=== PATIENT | male | born 1970 | race Caucasian/White ===

== ENCOUNTER → 2017-08-18 | Outpatient (CLI) | payer OTHER ==
[~2017-08-18] MED LIST: ALLEGRA30 MG PO; AMBIEN 10MG10 MG PO; CEPHALEXIN500 M1 PO; CYMBALTA 60MG60 MG PO; LEXAPRO 5MG5 MG PO; LYRICA 25MG CAP25 MG; MELATONIN1 M1 PO; NORCO 325 MG-7.1 TAB PO; OXYCONTIN30 MG PO
== END ==
LOC: COL.VAS 15:39
DX: I82.4Z1 Acute embolism and thrombosis of unspecified deep veins of right distal lower extremity (principal)

== ENCOUNTER → 2017-10-29 | Outpatient (CLI) | payer OTHER | LOC: COL.VAS 09:08 | DX: I51.7 Cardiomegaly (principal); I34.0 Nonrheumatic mitral (valve) insufficiency; I27.0 Primary pulmonary hypertension; Z86.711 Personal history of pulmonary embolism | CPT/HCPCS: Q9967 ==

== ENCOUNTER → 2021-12-21 | Outpatient (CLI) | payer OTHER | LOC: COL.RAD 12:03 | DX: M47.812 Spondylosis without myelopathy or radiculopathy, cervical region (principal); M48.02 Spinal stenosis, cervical region ==

== ENCOUNTER → 2022-11-19 | Outpatient (CLI) | payer OTHER | LOC: COL.VAS 11:36 | DX: R06.02 Shortness of breath (principal) ==

== ENCOUNTER 2024-04-13 07:58 | Day surgery (SDC) | payer OTHER ==
[2024-04-13] VITALS (7 sets, daily range): BP systolic 92–123; BP diastolic 58–82; PULSE 72–109; TEMP 98.2
[~2024-04-13] VITALS: Ht 188.1 cm; Wt 131.0 kg
[~2024-04-13 07:58] MED LIST changes: +LR 1,000 ML IV SCH
[2024-04-13 08:37] LABS: HEMATOCRIT 45.4 % (42.0-52.0); HEMOGLOBIN 15.8 g/dl (13.5-18.0); MEAN CELL VOLUME 89 fl (80.0-100.0); MEAN CORPUSCULAR HEMOGLOBIN 31 pg (27-31); MEAN CORPUSCULAR HGB CONC 35 g/dl (33.0-37.0); MEAN PLATELET VOLUME 10.4 fl (7.4-10.4); PLATELET COUNT 299 K/mm3 (130-400); RED BLOOD COUNT 5.13 M/mm3 (4.20-5.60); REDCELL DISTRIBUTION WIDTH-CV 11.9 % (11.5-14.5)
[2024-04-13] MEDS ORDERED: TAMBOCOR 1100 MG/TAB PO (08:42)
[2024-04-13] MEDS ORDERED: MAXZIDE-25MG TA1 TAB PO (08:42)
[2024-04-13] MEDS ORDERED: CARDIZEM CD 12120 MG PO (08:42)
[2024-04-13 08:43] LABS: INR 1.9 (0.8-3.0); PROTHROMBIN TIME 20.8 SECONDS (9.7-12.8)
[2024-04-13] MEDS ORDERED: DULOXETINE HCL40 MG PO (08:43)
[2024-04-13] MEDS ORDERED: XARELTO20 MG PO (08:43)
[2024-04-13] MEDS ORDERED: AMITRIPTYLINE H25 M1 PO (08:44)
[2024-04-13] MEDS ORDERED: ZANAFLEX 4MG TAB4 MG PO (08:45)
[2024-04-13] MEDS ORDERED: ATARAX 25MG25 MG/TAB PO (08:45)
[2024-04-13] MEDS ORDERED: MORPHINE 1515 MG/TAB PO (08:45)
[2024-04-13 08:58] LABS: CALCIUM 10.1 mg/dL (8.4-10.2); CREATININE, serum 0.88 mg/dL (0.72-1.25); MAGNESIUM 2.1 mg/dL (1.6-2.6)
[2024-04-13] MEDS ORDERED: LORazepam 2 MG/ML 1 ML VIAL IV ONE (09:15)
[2024-04-13] MEDS ORDERED: Lidocaine PF 2% (20 MG/ML) 5 ML VIAL ONE (09:22)
[2024-04-13 09:33] LABS: THYROID STIMULATING HORMONE 2.509 uIU/mL (0.350-4.940)
--- NOTE | 2024-04-13 10:00 | NUR ---
Pt fully awake, visiting with . Soda and pudding cup provided to pt. He denies complaints. Call light in reach.
[2024-04-13] MEDS ORDERED: CARDIZEM CD 18180 MG PO (10:43)
--- NOTE | 2024-04-13 11:10 | NUR ---
DC instructions and med changes reviewed with pt and . Both express understanding. He is steady on feet in room. IV DC'd, site wrapped with coban. Pt is assisted out to 's car by wheelchair. He is free of complaints at [facility].
== END 2024-04-13 11:05 | disposition home or self-care (01) ==
LOC: COL.CAR 07:58
PROVIDERS: Internal Medicine Cardiovascular Disease
DX: I48.0 Paroxysmal atrial fibrillation (principal); I48.91 Unspecified atrial fibrillation; I10 Essential (primary) hypertension; D68.51 Activated protein C resistance; Z86.711 Personal history of pulmonary embolism; Z79.01 Long term (current) use of anticoagulants
CPT/HCPCS: J2060; J2704; J7120